=== PATIENT | male | born 1965 | race Caucasian/White ===

== ENCOUNTER 2017-10-05 19:26 | Emergency (ER) | payer SELFPAY ==
[~2017-10-05] VITALS: Ht 188 cm; Wt 100.8 kg
[2017-10-05 20:11] LABS: BASOPHILS # (AUTO) 0.07 x10^3/uL (0-0.1); BASOPHILS % (AUTO) 1 % (0-1); EOSINOPHILS # (AUTO) 0.38 x10^3/uL (0-0.4); EOSINOPHILS % (AUTO) 4 % (1-7); LYMPHOCYTES # (AUTO) 2.31 x10^3/uL (1-3.4); LYMPHOCYTES % (AUTO) 22 % (22-44); MD NO; MEAN CORPUSCULAR HEMOGLOBIN 31.1 pg (27.5-34.5); MEAN CORPUSCULAR VOLUME 91.5 fL (81-97); MEAN PLATELET VOLUME 8.4 fL (7.4-10.4); MONOCYTES # (AUTO) 0.51 x10^3/uL (0.2-0.8); MONOCYTES % (AUTO) 5 % (2-9); NEUTROPHILS # (AUTO) 7.11 x10^3/uL (1.8-6.8); NEUTROPHILS % (AUTO) 69 % (42-75); PLATELET COUNT 228 x10^3/uL (130-400); RED BLOOD COUNT 4.91 x10^6/uL (4.38-5.82); RED CELL DISTRIBUTION WIDTH 12.9 % (9.4-14.8)
[2017-10-05 20:20] LABS: CALCIUM 8.4 mg/dL (8.5-10.1); CHLORIDE 104 mmol/L (98-107)
[2017-10-05 20:40] LABS: ALANINE AMINOTRANSFERASE 33 U/L (12-78); ALKALINE PHOSPHATASE 95 U/L (45-117); BILIRUBIN,TOTAL 0.7 mg/dL (0.2-1.0); TOTAL PROTEIN 6.9 g/dL (6.4-8.2)
[2017-10-05 20:57] LABS: ALBUMIN 3.8 g/dL (3.4-5.0); ANION GAP 9 mmol/L (5-15); SALICYLATE LEVEL 2.5 mg/dL (2.8-20.0)
[2017-10-05 20:58] LABS: ACETAMINOPHEN < 2 mcg/mL (10-30)
[2017-10-05 21:15] VITALS: BP 123/82
== END 2017-10-05 22:21 | disposition left against medical advice (07) ==
LOC: ED 22:05
DX: F23 Brief psychotic disorder (principal); Z79.899 Other long term (current) drug therapy; F41.9 Anxiety disorder, unspecified
CPT/HCPCS: 36415; 80053; 80307; 80329; 85025; 99285; G0480

== ENCOUNTER 2018-04-24 18:51 | Emergency (ER) | payer OTHER ==
[~2018-04-24] VITALS: Ht 188 cm; Wt 85.5 kg
[2018-04-24 19:09] VITALS: BP 136/79
[2018-04-24] MEDS ORDERED: LIDOCAINE-MPF 2%, 2ML ONE ×2 (19:17→20:40)
[2018-04-24] MEDS ORDERED: LIDOCAINE-MPF 1%, 5ML INFIL ONE (19:30)
[2018-04-24 20:00] LABS: BASOPHILS # (AUTO) 0.01 x10^3/uL (0-0.1); BASOPHILS % (AUTO) 0 % (0-1); EOSINOPHILS # (AUTO) 0.19 x10^3/uL (0-0.4); EOSINOPHILS % (AUTO) 2 % (1-7); LYMPHOCYTES # (AUTO) 1.15 x10^3/uL (1-3.4); LYMPHOCYTES % (AUTO) 11 % (22-44); MD NO; MEAN CORPUSCULAR HEMOGLOBIN 30.8 pg (27.5-34.5); MEAN CORPUSCULAR HGB CONC 33.7 g/dL (33.2-36.2); MEAN CORPUSCULAR VOLUME 91.3 fL (81-97); MEAN PLATELET VOLUME 7.8 fL (7.4-10.4); MONOCYTES # (AUTO) 0.54 x10^3/uL (0.2-0.8); MONOCYTES % (AUTO) 5 % (2-9); NEUTROPHILS # (AUTO) 8.49 x10^3/uL (1.8-6.8); NEUTROPHILS % (AUTO) 82 % (42-75); PLATELET COUNT 269 x10^3/uL (130-400); RED BLOOD COUNT 4.55 x10^6/uL (4.38-5.82); RED CELL DISTRIBUTION WIDTH 13.4 % (9.4-14.8)
[2018-04-24 20:11] LABS: ALANINE AMINOTRANSFERASE 25 U/L (12-78); ALBUMIN 3.2 g/dL (3.4-5.0); ANION GAP 7 mmol/L (5-15); CALCIUM 8.5 mg/dL (8.5-10.1); CHLORIDE 107 mmol/L (98-107); CREATININE 0.67 mg/dL (0.7-1.3)
[2018-04-24 20:13] LABS: ALKALINE PHOSPHATASE 99 U/L (45-117); BILIRUBIN,TOTAL 0.6 mg/dL (0.2-1.0); TOTAL PROTEIN 6.6 g/dL (6.4-8.2)
[2018-04-24] MEDS ORDERED: CEFTRIAXONE 1,000 MG ONE (20:40)
[2018-04-24] MEDS ORDERED: CEFTRIAXONE 1,000 MG IM ONE (21:00)
== END 2018-04-24 21:53 | disposition home or self-care (01) ==
LOC: ED 21:47
DX: S61.236A Puncture wound without foreign body of right little finger without damage to nail, initial encounter (principal); L03.123 Acute lymphangitis of right upper limb; F17.200 Nicotine dependence, unspecified, uncomplicated; Z88.8 Allergy status to other drugs, medicaments and biological substances; Z88.1 Allergy status to other antibiotic agents; X58.XXXA Exposure to other specified factors, initial encounter; Y93.89 Activity, other specified; Y92.009 Unspecified place in unspecified non-institutional (private) residence as the place of occurrence of the external cause; Y99.8 Other external cause status
CPT/HCPCS: 29125; 36415; 73140; 80053; 85025; 96372; 99285; J0696

== ENCOUNTER 2019-10-07 09:14 | Emergency (ER) | payer SELFPAY ==
[~2019-10-07] VITALS: Ht 188 cm; Wt 93.8 kg
--- NOTE | 2019-10-07 10:49 | NUR ---
PT LAYING IN BED, RESPIRATIONS EVEN AND UNLABORED, NO SIGNS OF DISTRESS. PT STATES HE DOESN'T WANT PAIN MEDS BECAUSE "THEY DON'T WORK" LIGHTS OFF TO PROMOTE REST.
[2019-10-07 11:38] VITALS: BP 126/75
--- NOTE | 2019-10-07 12:05 | NUR ---
pt ambulatory to bathroom, steady gait. pt states pain is "starting to calm down a bit"
== END 2019-10-07 14:22 | disposition home or self-care (01) ==
LOC: ED 12:00
DX: G43.C0 Periodic headache syndromes in child or adult, not intractable (principal); J32.2 Chronic ethmoidal sinusitis
CPT/HCPCS: 70450; 99284

== ENCOUNTER 2021-02-12 05:37 | Emergency (ER) | payer MEDICAID ==
--- NOTE | 2021-02-12 05:42 | NUR ---
PT NOT COOPERATIVE WITH ASSEMENT QUESTIONS. PT YELLS "I NEED TO SEE A DOCTOR! YOUR ABUSING ME! I NEED TO SPEAK TO SOMEONE IN CHARGE! I DONT HAVE TO ANSWER YOUR QUESTIONS!"
--- NOTE | 2021-02-12 06:40 | NUR ---
per christine at [facility], pt will be accepted back after med clearance here
--- NOTE | 2021-02-12 06:57 | NUR ---
First contact with patient, dr mays at bedside, lab drawing blood. POC med clear for [facility].
[2021-02-12 07:06] LABS: AMPHETAMINE SCREEN, URINE Positive (Negative); BARBITURATE SCREEN, URINE Negative (Negative); BENZODIAZEPINE SCREEN, URINE Negative (Negative); CANNABINOID SCREEN, URINE Negative (Negative); COCAINE SCREEN, URINE Negative (Negative); METHADONE SCREEN, URINE Negative (Negative); OPIATE SCREEN, URINE Negative (Negative)
[2021-02-12 07:20] LABS: BASOPHILS % (AUTO) 2 % (0-1); EOSINOPHILS % (AUTO) 6 % (1-7); LYMPHOCYTES % (AUTO) 29 % (22-44); MEAN CORPUSCULAR HEMOGLOBIN 29.9 pg (27.5-34.5); MEAN CORPUSCULAR HGB CONC 33.5 g/dL (33.2-36.2); MEAN PLATELET VOLUME 7.8 fL (7.4-10.4); MONOCYTES % (AUTO) 9 % (2-9); NEUTROPHILS % (AUTO) 55 % (42-75); PLATELET COUNT 245 x10^3/uL (130-400); RED BLOOD COUNT 4.71 x10^6/uL (4.38-5.82); RED CELL DISTRIBUTION WIDTH 13.8 % (9.4-14.8)
[2021-02-12 07:29] LABS: ALBUMIN 3.2 g/dL (3.4-5.0); CALCIUM 8.8 mg/dL (8.5-10.1); SALICYLATE LEVEL 1.9 mg/dL (2.8-20.0)
[2021-02-12 07:31] LABS: CREATININE 0.83 mg/dL (0.7-1.3)
--- NOTE | 2021-02-12 07:36 | NUR ---
Report to RONALD Samaniego at [facility]. Pt to be sent back
[2021-02-12 07:43] LABS: ANION GAP 3 mmol/L (5-15); CHLORIDE 104 mmol/L (98-107)
--- NOTE | 2021-02-12 09:29 | NUR ---
Pt waiting for transport back to [place], pt has remained sleeping, when he wakes up he is not cooperative.
--- NOTE | 2021-02-12 10:18 | NUR ---
Pt walked over to room 1, report to [facility] Pt waiting for tx back to [place].
--- NOTE | 2021-02-12 10:30 | NUR ---
REPORT RECEIVED FROM RONALD ACOSTA. PER KARLA, PT HAS BEEN MEDICALLY CLEARED AND IS AWAITING TRANSPORT BACK TO [place]. PT SLEEPING ON HOSPITAL BED, RESPS EVEN AND UNLABORED. ROOM SECURE. SITTER MONITORING FROM [facility] FOR SAFETY.
--- NOTE | 2021-02-12 11:30 | NUR ---
PT SLEEPING, RESPS EVEN AND UNLABORED, NADN. ROOM SECURE . SITTER MONITORING FROM [facility] FOR SAFETY.
[2021-02-12 12:05] VITALS: BP 164/100
--- NOTE | 2021-02-12 12:20 | NUR ---
PT MEDICALLY CLEARED FOR RETURN TO [facility]. PT A&OX4, NEURO INTACT. 5/5 STRENGTH TO ALL EXTREMITIES, NO DRIFT. GAIT STEADY. PT HAS NO COMPLAINT AT TIME OF DC. NO BELONGINGS WITH PT AT [facility]. THIS RN ATTEMPTED TO CALL [facility] TO EXCHANGE REPORT, NO ANSWER, NO MESSAGE MACHINE CONNECTED TO PHONE LINE. UNABLE TO EXCHANGE REPORT WITH RECEIVING RN. PT'S ORIGINAL LEGAL HOLD PAPERWORK GIVEN TO [facility] FOR TRANSPORT BACK TO [facility]. PT AMBULATORY TO AMBULANCE BAY WITH MEDICS. [place] AT TIME OF DC.
== END 2021-02-12 12:18 ==
LOC: EDBD 05:37 → ED 07:07 → MERGE 07:07 → ED 12:18
DX: F99 Mental disorder, not otherwise specified (principal)
CPT/HCPCS: 36415; 80048; 80299; 80307; 80320; 80329; 82040; 85025; 99285; G0480

== ENCOUNTER 2021-02-14 11:47 | Emergency (ER) | payer MEDICAID ==
[~2021-02-14] VITALS: Ht 188 cm; Wt 100.0 kg
--- NOTE | 2021-02-14 12:27 | NUR ---
LABS/IV/PLAN BOLUS. SITTER FROM [facility] AT BEDSIDE. PA WAS IN ROOM. NPO. VSS.
[2021-02-14] MEDS ORDERED: ONDANSETRON 2MG/ML, 2ML ONE (12:28)
[2021-02-14] MEDS ORDERED: SODIUM CHLORIDE 0.9% 1,000ML IVBOLUS ONE (12:30)
[2021-02-14] MEDS ORDERED: ONDANSETRON 2MG/ML, 2ML IVPush ONE (12:30)
[2021-02-14] MEDS ORDERED: SODIUM CHLORIDE FLUSH 10ML SYR IVF ONE (12:30)
--- NOTE | 2021-02-14 12:35 | NUR ---
BREAK RN: PT LAYING ON GURNEY WITH EYES CLOSED & US IN PROGRESS, RESPONDS APPROP TO STAFF, NAD, NO NEEDS AT THIS TIME, Jillian SITTER AT BS, CALL LIGHT WITHIN REACH.
[2021-02-14 12:36] LABS: BASOPHILS % (AUTO) 0 % (0-1); EOSINOPHILS % (AUTO) 0 % (1-7); LYMPHOCYTES % (AUTO) 10 % (22-44); MEAN CORPUSCULAR HEMOGLOBIN 30.1 pg (27.5-34.5); MEAN CORPUSCULAR HGB CONC 34.3 g/dL (33.2-36.2); MEAN PLATELET VOLUME 8.3 fL (7.4-10.4); MONOCYTES % (AUTO) 5 % (2-9); NEUTROPHILS % (AUTO) 85 % (42-75); PLATELET COUNT 380 x10^3/uL (130-400); RED BLOOD COUNT 6.25 x10^6/uL (4.38-5.82); RED CELL DISTRIBUTION WIDTH 13.7 % (9.4-14.8)
[2021-02-14 12:40] LABS: ALANINE AMINOTRANSFERASE 31 U/L (12-78); ALBUMIN 3.9 g/dL (3.4-5.0); ANION GAP 7 mmol/L (5-15); CALCIUM 9.3 mg/dL (8.5-10.1); CHLORIDE 96 mmol/L (98-107)
[2021-02-14 12:42] LABS: ALKALINE PHOSPHATASE 146 U/L (45-117); BILIRUBIN,TOTAL 0.9 mg/dL (0.2-1.0); CREATININE 0.98 mg/dL (0.7-1.3); TOTAL PROTEIN 8.5 g/dL (6.4-8.2); TROPONIN I < 0.015 ng/mL (0.000-0.045)
--- NOTE | 2021-02-14 14:16 | NUR ---
STOOL WALKED TO LAB.
--- NOTE | 2021-02-14 14:53 | NUR ---
CALLED [facility] AND THEY GAVE ME A NURSE FURNITURE PACKER NUMBER TO CALL TO GIVE REPORT TO. NO ANSWER.
--- NOTE | 2021-02-14 15:02 | NUR ---
SBAR REPORT GIVEN TO CARROLL FROM [facility], ANSWERED QUESTIONS. WAITING FOR TRANSPORT AT THIS TIME. [facility] SITTING W/ PATIENT FOR SAFETY.
[2021-02-14 15:16] VITALS: BP 153/90
--- NOTE | 2021-02-14 16:23 | NUR ---
PT IS MEDICALLY CLEARED, WAITING FOR [facility] [place] PT IS ON LEGAL HOLD. [facility] BEDSIDE W/ PT FOR SAFETY. NADN. CALL LIGHT W/IN REACH.
--- NOTE | 2021-02-14 17:01 | NUR ---
PT RESTING IN [facility]. [facility]. EXPECTING [facility] 212
== END 2021-02-14 17:42 | disposition home or self-care (01) ==
LOC: ED 12:27
DX: R11.2 Nausea with vomiting, unspecified (principal); R10.13 Epigastric pain; I10 Essential (primary) hypertension; Z90.49 Acquired absence of other specified parts of digestive tract
CPT/HCPCS: 36415; 76700; 80053; 83690; 84484; 85025; 93005; 96361; 96374; 99285; J2405; J7030

== ENCOUNTER 2021-02-16 16:07 | Inpatient (IN) | payer MEDICAID ==
[~2021-02-16] VITALS: Ht 188 cm; Wt 97.7 kg
--- NOTE | 2021-02-16 16:27 | NUR ---
PT BIBA FROM [facility], PER EMS PT EXPERIENCING NAUSEA AND INCREASED FATIGUE X A FEW DAYS AND COFFEE GROUND EMESIS THIS MORNING. EMS REPORTS EKG EN ROUTE PRESENTED AFIB RVR. PER [facility] EMPLOYEE, PT DETOXING FROM ETOH AND METH X A FEW DAYS. PT PRESENTS TIRED, A&O, RESPS EVEN AND UNLABORED, REPORTS 3/10 EPIGASTRIC PAIN. PT HAS HX OF MULTIPLE ABD SURGERIES, SURGICAL INCISION SCARS NOTED THROUGHOUT ABDOMEN. PT ACTIVELY DRY HEAVING, EMESIS BAG PROVIDED, FLUIDS INFUSING.
--- NOTE | 2021-02-16 16:40 | NUR ---
CHRIS WILSON AT BEDSIDE FOR INITIAL EVAL.ASSESSMENT
[2021-02-16] MEDS ORDERED: PANTOPRAZOLE 40 MG IV ONE (16:58)
[2021-02-16] MEDS ORDERED: DILTIAZEM 5 MG/ML, 5ML ONE ×4 (16:59→20:21)
[2021-02-16] MEDS ORDERED: LORazepam 2 MG/ML, 1ML ONE (16:59)
[2021-02-16] MEDS ORDERED: SODIUM CHLORIDE 0.9% 1,000ML IVBOLUS ONE ×2 (17:00→18:30)
[2021-02-16] MEDS ORDERED: LORazepam 2 MG/ML, 1ML IV ONE ×2 (17:00→18:30)
[2021-02-16] MEDS ORDERED: SODIUM CHLORIDE FLUSH 10ML SYR IVF ONE ×2 (17:00→18:30)
[2021-02-16] MEDS ORDERED: DILTIAZEM 5 MG/ML, 5ML IV ONE (17:00)
[2021-02-16] MEDS ORDERED: DILTIAZEM 125 MG in SODIUM CHLORIDE 0.9% 100 ML IV SCH (17:00)
[2021-02-16] MEDS ORDERED: PANTOPRAZOLE 40 MG IV IVPush ONE (17:00)
[2021-02-16 17:17] LABS: MEAN CORPUSCULAR HGB CONC 34.4 g/dL (33.2-36.2); MEAN PLATELET VOLUME 8.7 fL (7.4-10.4); PLATELET COUNT 290 x10^3/uL (130-400); RED BLOOD COUNT 5.57 x10^6/uL (4.38-5.82); RED CELL DISTRIBUTION WIDTH 13.7 % (9.4-14.8)
[2021-02-16 17:27] LABS: ALANINE AMINOTRANSFERASE 19 U/L (12-78); ALBUMIN 2.8 g/dL (3.4-5.0); ANION GAP 3 mmol/L (5-15); CALCIUM 8.8 mg/dL (8.5-10.1); CHLORIDE 92 mmol/L (98-107); CREATININE 0.96 mg/dL (0.7-1.3)
--- NOTE | 2021-02-16 17:27 | NUR ---
pt medicated per order, tolerated well. fluids/diltiazem drip infusing, pt a&o, resps even and unlabored, nadn. sitter at bedside.
[2021-02-16 17:31] LABS: ALKALINE PHOSPHATASE 101 U/L (45-117); BILIRUBIN,TOTAL 1.1 mg/dL (0.2-1.0); TOTAL PROTEIN 6.7 g/dL (6.4-8.2); TROPONIN I < 0.015 ng/mL (0.000-0.045)
[2021-02-16 17:37] LABS: INTERNATIONAL NORMALIZED RATIO 1.11 (0.93-1.1); PROTHROMBIN TIME 11.8 Seconds (9.6-11.5)
[2021-02-16 18:02] LABS: BAND#(MANUAL) 2.76 x10^3/uL; BANDS%(MANUAL) 29 % (0-7); EOS% (MANUAL) 1 % (1-7); LYMPH#(MANUAL) 1.71 x10^3/uL (1-3.4); LYMPHS% (MANUAL) 18 % (22-44); METAMYELOCYTES# (MANUAL) 0.38 x10^3/uL (0-0); METAMYELOCYTES% (MANUAL) 4 % (0-1); MONOS#(MANUAL) 1.24 x10^3/uL (0.3-2.7); MONOS% (MANUAL) 13 % (2-9); REACTIVE LYMPHS # (MANUAL) 0.38 x10^3/uL (0-0); REACTIVE LYMPHS % (MANUAL) 4 % (0-0); SEG#(MANUAL) 2.95 x10^3/uL (1.8-6.8); SEGS% (MANUAL) 31 % (42-75)
[2021-02-16 18:04] LABS: <PLATELET ESTIMATE> ADEQUATE; <PLT MORPHOLOGY> NORMAL PLT MORPH; <RBC MORPHOLOGY> NORMAL
[2021-02-16] MEDS ORDERED: PIPERACILLIN/TAZO 3.375 GM in DEXTROSE 5% 50 ML IVPB ONE (18:30)
[2021-02-16] MEDS ORDERED: LABETALOL 5MG/ML, 20ML IVPush ONE (18:30)
[2021-02-16] MEDS ORDERED: VANCOMYCIN PER PHARMACY MC ONE (18:30)
--- NOTE | 2021-02-16 18:31 | NUR ---
CHRIS Ascencio at bedside to discuss POC. [facility] at bedside for eval.
[2021-02-16] MEDS ORDERED: VANCOMYCIN 2,000 MG in SODIUM CHLORIDE 0.9% 500 ML IV ONE (18:45)
--- NOTE | 2021-02-16 18:50 | NUR ---
bedside report given to yvette morales
[2021-02-16] MEDS ORDERED: METOPROLOL 1 MG/ML, 5ML ONE (18:57)
[2021-02-16] MEDS ORDERED: DILTIAZEM 5 MG/ML, 5ML IVPush ONE (19:00)
[2021-02-16] MEDS ORDERED: METOPROLOL 1 MG/ML, 5ML IVPush ONE (19:00)
[2021-02-16] MEDS ORDERED: ADENOSINE 6 MG/2 ML ONE (19:06)
[2021-02-16 19:17] LABS: MICROSCOPIC INDICATED
--- NOTE | 2021-02-16 19:25 | NUR ---
Note undone in EDM - 02/16/21 at 2033 by [facility] trauma rn: dr dey at bedside for pt d/t high hr. adenosine 6 mg pushed with pt on defib pads with good effect. ekgs obtained during procedure. per dr dey titrate dilt drip to 15 ml/hr. pt in no distress. dr dey states to observe pt in in er for approx 30 more min and notify him for a hr sustained over 140 bpm
[2021-02-16] MEDS ORDERED: LACTATED RINGERS 1,000 ML IV SCH (19:30)
[2021-02-16] MEDS ORDERED: METHOCARBAMOL 500 MG TABLET PO PRN (19:30)
[2021-02-16] MEDS ORDERED: DILTIAZEM 5 MG/ML, 5ML IVPush PRN (19:30)
[2021-02-16] MEDS ORDERED: DOCUSATE 100 MG CAPSULE PO PRN (19:30)
[2021-02-16] MEDS ORDERED: TEMAZEPAM 15 MG CAPSULE PO PRN (19:30)
[2021-02-16] MEDS ORDERED: GUAIFENESIN/DM 200-20MG, 10ML UDC PO PRN (19:30)
[2021-02-16] MEDS: ENOXAPARIN 40 MG/0.4 ML SQ SCH (19:30)
[2021-02-16] MEDS ORDERED: LABETALOL 5MG/ML, 20ML IVPush PRN (19:30)
[2021-02-16] MEDS ORDERED: ACETAMINOPHEN 325 MG TABLET PO PRN (19:30)
[2021-02-16] MEDS ORDERED: ONDANSETRON 2MG/ML, 2ML IVPush PRN (19:30)
[2021-02-16] MEDS ORDERED: OXYcodone IR 5MG TABLET PO PRN (19:30)
[2021-02-16] MEDS ORDERED: LORazepam 2 MG/ML, 1ML IVPush PRN (19:30)
--- NOTE | 2021-02-16 19:30 | NUR ---
trauma rn: dr dey at bedside for pt d/t high hr. adenosine 6 mg pushed with pt on defib pads with good effect. ekgs obtained during procedure. per dr dey titrate dilt drip to 15 ml/hr. pt in no distress. dr dey states to observe pt in in er for approx 30 more min and notify him for a hr sustained over 140 bpm
[2021-02-16] MEDS ORDERED: CHLORDIAZEPOXIDE 10 MG CAPSULE PO PRN (20:00)
[2021-02-16] MEDS ORDERED: VANCOMYCIN PER PHARMACY MC PRN (20:00)
[2021-02-16] MEDS ORDERED: CHLORDIAZEPOXIDE 25 MG CAPSULE PO PRN ×3 (20:00)
[2021-02-16] MEDS ORDERED: LORazepam 2 MG/ML, 1ML IV PRN (20:00)
--- NOTE | 2021-02-16 20:20 | NUR ---
SPOKE WITH DR. GARCIA. STATES TO GIVE PRN CARDIZEIM AT THIS TIME. STATES HE IS OK WITH PT GOING UP TO THE CARD TELE FLOOR AT THIS TIME
--- NOTE | 2021-02-16 20:35 | NUR ---
pt resting in [facility], medicated per md. pt's hr between 110's to 120's at this time.
[2021-02-16] MEDS ORDERED: PHARMACOKINETIC MONITORING MC PRN (21:00)
[2021-02-16] MEDS ORDERED: PHARMACOKINETIC CONSULTATION MC ONE (21:00)
--- NOTE | 2021-02-16 21:06 | NUR ---
REPORT GIVEN TO RONALD US
[2021-02-16 21:24] VITALS: BP 116/74
[2021-02-16] MEDS: PIPERACILLIN/TAZO 3.375 GM in DEXTROSE 5% 50 ML IVPB SCH (21:30)
[2021-02-17] MEDS ORDERED: DIPH25CA61 PO (00:07)
[2021-02-17] MEDS ORDERED: NICO-587 TD (00:07)
[2021-02-17] MEDS ORDERED: ONDA4TAB7 PO (00:07)
[2021-02-17] MEDS ORDERED: SUCR1TAB PO (00:41)
[2021-02-17] MEDS ORDERED: ACET650S21 PO (00:41)
[2021-02-17] MEDS ORDERED: PROM25VI IM (00:41)
[2021-02-17] MEDS ORDERED: DIVA500T4 PO (00:41)
[2021-02-17] MEDS ORDERED: ACET-2065 PO (00:47)
[2021-02-17 01:16] VITALS: BP 127/68
[2021-02-17] MEDS: PIPERACILLIN/TAZO 3.375 GM in DEXTROSE 5% 50 ML IVPB SCH (05:13)
[2021-02-17 06:56] VITALS: BP 127/82
[2021-02-17 08:08] LABS: MEAN CORPUSCULAR HGB CONC 33.7 g/dL (33.2-36.2); MEAN PLATELET VOLUME 8.6 fL (7.4-10.4); PLATELET COUNT 312 x10^3/uL (130-400); RED BLOOD COUNT 5.15 x10^6/uL (4.38-5.82); RED CELL DISTRIBUTION WIDTH 13.9 % (9.4-14.8)
[2021-02-17 08:17] LABS: ANION GAP 4 mmol/L (5-15); CALCIUM 8.5 mg/dL (8.5-10.1); CHLORIDE 99 mmol/L (98-107)
[2021-02-17 08:33] LABS: <PLATELET ESTIMATE> ADEQUATE; <PLT MORPHOLOGY> NORMAL PLT MORPH; <RBC MORPHOLOGY> NORMAL; BAND#(MANUAL) 1.05 x10^3/uL; BANDS%(MANUAL) 15 % (0-7); LYMPH#(MANUAL) 1.68 x10^3/uL (1-3.4); LYMPHS% (MANUAL) 24 % (22-44); METAMYELOCYTES# (MANUAL) 0.07 x10^3/uL (0-0); METAMYELOCYTES% (MANUAL) 1 % (0-1); MONOS#(MANUAL) 0.98 x10^3/uL (0.3-2.7); MONOS% (MANUAL) 14 % (2-9); REACTIVE LYMPHS # (MANUAL) 0.35 x10^3/uL (0-0); REACTIVE LYMPHS % (MANUAL) 5 % (0-0); SEG#(MANUAL) 2.87 x10^3/uL (1.8-6.8); SEGS% (MANUAL) 41 % (42-75)
[2021-02-17] MEDS: THIAMINE 100MG TABLET PO SCH (08:42)
[2021-02-17] MEDS: METOPROLOL TARTRATE 25 MG TAB PO SCH ×2 (08:42→17:35)
[2021-02-17] MEDS: FOLIC ACID 1 MG TABLET PO SCH (08:42)
[2021-02-17] MEDS ORDERED: VANCOMYCIN 1,600 MG in SODIUM CHLORIDE 0.9% 250 ML IV SCH (09:00)
[2021-02-17 12:53] VITALS: BP 137/77
[2021-02-17] MEDS ORDERED: SIMETHICONE 125 MG CHEW TAB ONE (14:09)
[2021-02-17] MEDS: SIMETHICONE 125 MG CHEW TAB PO SCH ×2 (14:10→17:35)
[2021-02-17] MEDS ORDERED: DILTIAZEM 125 MG in SODIUM CHLORIDE 0.9% 100 ML IV SCH (17:00)
[2021-02-17] MEDS: ENOXAPARIN 40 MG/0.4 ML SQ SCH (19:30)
[2021-02-17 20:55] VITALS: BP 126/71
[2021-02-18 01:23] VITALS: BP 132/70
[2021-02-18] MEDS: METOPROLOL TARTRATE 25 MG TAB PO SCH (06:26)
[2021-02-18 07:06] VITALS: BP 151/84
[2021-02-18] MEDS: FOLIC ACID 1 MG TABLET PO SCH (07:58)
[2021-02-18] MEDS: THIAMINE 100MG TABLET PO SCH (07:58)
[2021-02-18] MEDS: SIMETHICONE 125 MG CHEW TAB PO SCH (07:59)
[2021-02-18] MEDS ORDERED: SIME125T PO (08:03)
[2021-02-18] MEDS ORDERED: METO25TA35 PO (08:03)
== END 2021-02-18 10:11 | disposition home or self-care (01) | DRG 872 ==
LOC: ED 17:54 → EDIP 18:07 → 5SO 21:24
PROVIDERS: ADMIT Internal Medicine; ATTEND Family Medicine
DX: A41.9 Sepsis, unspecified organism (principal); E87.1 Hypo-osmolality and hyponatremia; I48.92 Unspecified atrial flutter; F15.20 Other stimulant dependence, uncomplicated; D68.69 Other thrombophilia; R45.851 Suicidal ideations; F10.139 Alcohol abuse with withdrawal, unspecified; I48.91 Unspecified atrial fibrillation; I10 Essential (primary) hypertension; F41.1 Generalized anxiety disorder; F43.10 Post-traumatic stress disorder, unspecified; F32.9 Major depressive disorder, single episode, unspecified; K29.20 Alcoholic gastritis without bleeding; F60.3 Borderline personality disorder; F17.210 Nicotine dependence, cigarettes, uncomplicated; R45.850 Homicidal ideations; Y90.9 Presence of alcohol in blood, level not specified; E87.8 Other disorders of electrolyte and fluid balance, not elsewhere classified; Z90.49 Acquired absence of other specified parts of digestive tract; Z88.6 Allergy status to analgesic agent; Z71.6 Tobacco abuse counseling; Z79.899 Other long term (current) drug therapy; Z88.8 Allergy status to other drugs, medicaments and biological substances
CPT/HCPCS: 36415; 71045; 80048; 80053; 81001; 83605; 83690; 83735; 84100; 84145; 84443; 84484; 85025; 85610; 86850; 86900; 87040; 93005; 96361; 96374; 96375; G0378; J2543; C9113; J2060; J7030